=== PATIENT | female | born 1945 | race Caucasian/White ===

== ENCOUNTER → 2016-11-24 | Outpatient (CLI) | payer BC ==
--- NOTE | 2016-11-24 14:28 | RAD ---
DATE: 11/24/2016 EXAM: MAMMO BANDAR SCREENING BILATERAL HISTORY: Screening study. COMPARISON: 11/10/2015 This study was interpreted with the benefit of Computerized Aided Detection (CAD). The breast parenchyma shows scattered fibroglandular densities. Breast parenchyma level B. FINDINGS: Digital MLO and CC mammograms of both breasts were obtained. Additionally digital breast tomosynthesis (3D mammography) images of both breasts in the MLO and CC projections were performed. Comparison study is dated 11/10/2015. The breast parenchyma is heterogeneously dense which can obscure a lesion on mammography (breast density code B). No spiculated mass is seen. No malignant appearing calcification or new area of architectural distortion is noted. Benign appearing and vascular calcifications are seen within both breasts. Small localizing clips are seen within both breasts. A benign-appearing intramammary lymph node is seen within the upper outer quadrant of the left breast, unchanged. Digital breast tomosynthesis images demonstrate no spiculated mass or malignant appearing calcification. Since the previous examination there has been no significant interval change. IMPRESSION: BI-RADS Category 2 benign findings. There is no mammographic evidence of malignancy. Routine yearly screening mammography is recommended for follow-up. BI-RADS CATEGORY: 2 BENIGN FINDING(S) RECOMMENDED FOLLOW-UP: 12M 12 MONTH FOLLOW-UP PQRS compliance statement: Patient information was entered into a reminder system with a target due date 11/24/2017 for the next mammogram. Mammography is a sensitive method for finding small breast cancers, but it does not detect them all and is not a substitute for careful clinical examination. A negative mammogram does not negate a clinically suspicious finding and should not result in delay in biopsying a clinically suspicious abnormality. "Our facility is accredited by the [employer] Mammography [employer]."
== END | disposition home or self-care (01) ==
LOC: KCIC MAMMO 09:56
PROVIDERS: ATTEND Internal Medicine
DX: Z12.31 Encounter for screening mammogram for malignant neoplasm of breast (principal)
CPT/HCPCS: 77063; G0202; 77067

== ENCOUNTER → 2018-04-11 | Outpatient (CLI) | payer BC ==
[~2018-04-11] MED LIST: CALC600T4 PO; CHOL100017 PO; EZET10TA18 PO; HYDR-2145 PO; LEVO88TA4 PO; METO-239 PO; OMEG-131 PO; OMEG1CAP68 PO; PSYL0.4C2 PO; QUIN40TA16 PO; WARF1TAB69 PO; WARF6TAB47 PO
--- NOTE | 2018-04-11 16:34 | RAD ---
Right lower show any bone length study, 04/11/2018: HISTORY: Planned knee surgery AP views of the femur and right lower leg were obtained with radiopaque markers on the skin surface laterally to aid in bone length measurements for surgical planning. There is moderate osteoarthritis at the right knee joint with dominant involvement of the medial compartment. There is moderate streaky subcutaneous edema in the lower leg. No other abnormality is identified on this limited exam. Electronically signed by: Edil Garrido MD (04/11/2018 4:29 PM) [facility]
== END | disposition home or self-care (01) ==
LOC: RAD 11:02
PROVIDERS: ATTEND Orthopaedic Surgery
DX: Z01.818 Encounter for other preprocedural examination (principal); M17.11 Unilateral primary osteoarthritis, right knee
CPT/HCPCS: 77073

== ENCOUNTER → 2018-04-29 | Outpatient (CLI) | payer BC ==
[~2018-04-29] MED LIST changes: +ENOX100D SQ; +MELO15TA6 PO; +OXYC1TAB15 PO
[2018-04-29 09:11] LABS: BILIRUBIN,URINE NEGATIVE (NEG); CLARITY,URINE CLEAR; COLOR,URINE YELLOW; NITRITE,URINE NEGATIVE (NEG); PH,URINE 6.5; PROTEIN,URINE NEGATIVE (NEG-TRACE); UROBILINOGEN,URINE 0.2 mg/dL (0.2 mg/dL)
[2018-04-29 09:57] LABS: ALBUMIN 3.4 g/dL (3.4-5.0); BASO # 0.1 x10^3/uL (0.0-0.2); BASO % 1 % (0-3); CALCIUM 9.9 mg/dL (8.5-10.1); CREATININE 0.8 mg/dL (0.6-1.0); EOS # 0.1 x10^3/uL (0.0-0.7); EOS % 1 % (0-3); GFR 70.9; HEMATOCRIT 41.1 % (36.0-47.0); HEMOGLOBIN 14.4 g/dL (12.0-15.5); LYMPH # 1.3 x10^3/uL (1.0-4.8); LYMPH % 22 % (24-48); MEAN CORPUSCULAR HEMOGLOBIN 31 pg (25-35); MEAN CORPUSCULAR HGB CONC 35 g/dL (31-37); MEAN CORPUSCULAR VOLUME 88 fL (79-100); MONO # 0.4 x10^3/uL (0.0-1.1); MONO % 7 % (0-9); NEUT # 4.1 x10^3uL (1.8-7.7); NEUT % 69 % (31-73); PLATELET COUNT 178 x10^3/uL (140-400); POTASSIUM 3.9 mmol/L (3.5-5.1); RED BLOOD COUNT 4.67 x10^6/uL (3.50-5.40); RED CELL DISTRIBUTION WIDTH 13.5 % (11.5-14.5); WHITE BLOOD COUNT 5.9 x10^3/uL (4.0-11.0)
[2018-04-29 09:59] LABS: PROTHROMBIN TIME PATIENT 18.6 SEC (11.7-14.0)
[2018-04-29 10:16] LABS: BACTERIA,URINE MANY /HPF (0-FEW); SQUAMOUS EPITHELIAL CELL,UR MANY /LPF; WBC,URINE >40 /HPF (0-4)
[2018-04-29 10:17] LABS: RBC,URINE OCC /HPF (0-2)
--- NOTE | 2018-04-29 13:35 | EKG ---
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
--- NOTE | 2018-04-29 18:10 | RAD ---
EXAM: PA and Lateral Views of the Chest DATE: 04/29/2018 2:12 PM INDICATION: PREOP XRAY, HX OF HYPERTENSION, HX OF PULMONARY EMBOLISMS IN THE PAST. COMPARISON: No Prior FINDINGS: The heart is not enlarged. Atherosclerotic calcifications of the tortuous aorta are seen. Mediastinal and hilar contours are normal. Mild interstitial prominence is seen bilaterally, nonspecific and may be physiologic for this patient. No focal parenchymal airspace opacity. No pleural effusion or pneumothorax. IMPRESSION: 1. Nonspecific mild interstitial prominence bilaterally possibly physiologic for this patient. 2. No lobar consolidation. Electronically signed by: Jin Houser MD (04/29/2018 6:05 PM) [id number]
[2018-04-30 00:16] LABS: HEMOGLOBIN A1C 6.1 % (4.8-5.6)
== END | disposition home or self-care (01) ==
LOC: SURGPAT 13:23
PROVIDERS: ATTEND Orthopaedic Surgery
DX: Z01.818 Encounter for other preprocedural examination (principal); M17.11 Unilateral primary osteoarthritis, right knee; I10 Essential (primary) hypertension; Z86.711 Personal history of pulmonary embolism; I70.0 Atherosclerosis of aorta
CPT/HCPCS: 36415; 71046; 80048; 81001; 82040; 82306; 83036; 85025; 85610; 85651; 85730; 87086; 87641; 93005

== ENCOUNTER → 2018-12-18 | Outpatient (CLI) | payer BC ==
[2018-05-17 15:02] VITALS: BP 108/49
[~2018-12-18] MED LIST changes: -EZET10TA18 PO; +EZET10TA20 PO
--- NOTE | 2018-12-18 14:04 | KCIC ---
Bilateral digital screening mammograms with 3-D tomosynthesis: Reason for examination: Routine screening. Comparison is made to previous studies dated 11/24/2016 and 11/10/2015. Bilateral mammograms in CC and oblique projections were obtained with 2-D imaging and 3-D tomosynthesis imaging on a Siemens Inspiration unit and reviewed on the workstation. Interpretation was made with the benefit of CAD. The skin and nipples show no abnormalities. No abnormal axillary lymph nodes are seen. The breast parenchyma shows scattered fatty and fibroglandular density. (Breast density: Category B.) There are small nodules consistent with intramammary lymph nodes. There are no new dominant masses, suspicious calcifications or architectural distortion. Benign calcifications are present. Impression: No evidence of malignancy. Recommend routine screening. BI-RAD Category 2: Benign. "Our facility is accredited by the [employer] Mammography [employer]." This patient's information has been entered into a reminder system for the patient to be notified with the results of her examination and a target date for the next mammogram. Electronically signed by: Leslie Post MD (12/18/2018 2:02 PM) [id number]
== END | disposition home or self-care (01) ==
LOC: KCIC MAMMO 12:20
PROVIDERS: ATTEND Internal Medicine
DX: N64.89 Other specified disorders of breast (principal); Z12.31 Encounter for screening mammogram for malignant neoplasm of breast
CPT/HCPCS: 77063; 77067

== ENCOUNTER → 2020-08-18 | Outpatient (CLI) | payer BC ==
[2018-05-17 15:02] VITALS: BP 108/49
[~2020-08-18] MED LIST changes: -CALC600T4 PO; +CALC600T60 PO
--- NOTE | 2020-08-18 15:53 | KCIC ---
Bilateral digital screening mammograms with 3-D tomosynthesis: Reason for examination: Routine screening. Comparison is made to previous studies dated back to 10/12/2014. Bilateral mammograms in CC and oblique projections were obtained with 2-D imaging and 3-D tomosynthes is imaging on a Siemens Inspiration unit and reviewed on the workstation. Interpretation was made wit h the benefit of CAD. The skin and nipples show no abnormalities. No abnormal axillary lymph nodes are seen. The breast par enchyma shows scattered fatty and fibroglandular density. (Breast density: Category B.) There continu e to be scattered calcifications throughout both breasts. Some of these are secretory calcifications. There are no new dominant masses, suspicious calcifications or architectural distortion. Biopsy clip s remain present bilaterally. Impression: No evidence of malignancy. Recommend routine screening. BI-RAD Category 2: Benign. "Our facility is accredited by the [employer] Mammography [employer]." This patient's information has been entered into a reminder system for the patient to be notified wit h the results of her examination and a target date for the next mammogram. Electronically signed by: Leslie Post MD (08/18/2020 3:50 PM) [id number]
--- NOTE | 2020-08-19 00:08 | KCIC ---
INDICATION: Screening for osteopenia/osteoporosis. Postmenopausal evaluation. COMPARISON: 01/03/2011 TECHNIQUE: Bone densitometry was performed through the lumbar spine and proximal femur. IMPRESSION: Lumbar Spine: BMD: 1.04 T-Score: 0 Range: Normal. Decreased by 1 percent from prior Proximal Femur: BMD: 0.75 T-Score: -1.6 Range: Osteopenic. Decreased by 10 percent from prior. World Health Organization Criteria for Bone Density: T-Score: > -1.0: Normal Range < -1.0 to -2.5: Osteopenic Range < -2.5: Osteoporotic Range Electronically signed by: Leonidas Lizama MD (08/19/2020 12:05 AM) [id number]
== END ==
LOC: KCIC MAMMO 10:41
PROVIDERS: ATTEND Internal Medicine
DX: Z12.31 Encounter for screening mammogram for malignant neoplasm of breast (principal); Z78.0 Asymptomatic menopausal state
CPT/HCPCS: 77063; 77067; 77080